=== PATIENT | female | born 1970 | race Caucasian/White ===

== ENCOUNTER 2017-01-16 21:41 | Emergency (ER) | payer OTHER ==
[~2017-01-16] VITALS: Ht 165.1 cm; Wt 104.7 kg
[2017-01-16 22:56] VITALS: BP 152/89
== END 2017-01-16 22:57 | disposition left against medical advice (07) ==
LOC: EME 21:41
DX: R07.9 Chest pain, unspecified (principal); M25.511 Pain in right shoulder; M54.9 Dorsalgia, unspecified; F17.200 Nicotine dependence, unspecified, uncomplicated
CPT/HCPCS: 99281; 99283

== ENCOUNTER 2017-05-30 00:47 | Emergency (ER) | payer OTHER ==
[~2017-05-30] VITALS: Ht 165.1 cm; Wt 93.7 kg
[2017-05-30] MEDS ORDERED: PERCOCET 5/31 TABLET PO (01:53)
[2017-05-30] MEDS ORDERED: VALIUM5 MG PO (01:53)
[2017-05-30] MEDS ORDERED: MEDROL DOSEPAK4 MG PO (01:53)
[2017-05-30 02:41] VITALS: BP 118/70
[2017-05-31] MEDS ORDERED: POTASSIUM CHLO10 ME4 PO (14:49)
[2017-05-31] MEDS ORDERED: LEVOTHYROXINE75 MCG PO (14:49)
[2017-05-31] MEDS ORDERED: FUROSEMIDE40 MG PO (14:50)
[2017-05-31] MEDS ORDERED: MOTRIN800 MG PO (16:20)
== END 2017-05-30 02:43 | disposition home or self-care (01) ==
LOC: EME 00:47 → EXP 00:47
DX: M54.12 Radiculopathy, cervical region (principal); F17.200 Nicotine dependence, unspecified, uncomplicated
CPT/HCPCS: 99281; 99283; J7512

== ENCOUNTER 2017-05-31 13:09 | Emergency (ER) | payer OTHER ==
[~2017-05-31] VITALS: Ht 165.1 cm; Wt 93.6 kg
[~2017-05-31 13:09] MED LIST: MEDROL DOSEPAK4 MG PO; PERCOCET 5/31 TABLET PO; VALIUM5 MG PO
[2017-05-31 13:13] VITALS: BP 142/94
[2017-05-31] MEDS ORDERED: LEVOTHYROXINE75 MCG PO (14:49)
[2017-05-31] MEDS ORDERED: POTASSIUM CHLO10 ME4 PO (14:49)
[2017-05-31] MEDS ORDERED: FUROSEMIDE40 MG PO (14:50)
[2017-05-31] MEDS ORDERED: MOTRIN800 MG PO (16:20)
== END 2017-05-31 16:38 | disposition home or self-care (01) ==
LOC: EME 13:09
DX: M25.561 Pain in right knee (principal); F17.200 Nicotine dependence, unspecified, uncomplicated; W01.0XXA Fall on same level from slipping, tripping and stumbling without subsequent striking against object, initial encounter
CPT/HCPCS: 73564; 99281; 99284

== ENCOUNTER 2017-08-05 05:54 | Emergency (ER) | payer SELFPAY ==
[~2017-08-05] VITALS: Ht 165.1 cm; Wt 91.5 kg
[~2017-08-05 05:54] MED LIST changes: +FUROSEMIDE40 MG PO; +LEVOTHYROXINE75 MCG PO; +MOTRIN800 MG PO; +POTASSIUM CHLO10 ME4 PO
[2017-08-05 06:35] LABS: INFLUENZA A VIRAL ANTIGEN NEGATIVE; INFLUENZA B VIRAL ANTIGEN NEGATIVE
[2017-08-05] MEDS ORDERED: LORATADINE10 M2 PO (07:33)
[2017-08-05] MEDS ORDERED: TESSALON200 MG PO (07:33)
[2017-08-05] MEDS ORDERED: K-DUR10 MEQ PO (07:37)
[2017-08-05] MEDS ORDERED: SERTRALINE HCL50 MG PO (07:37)
[2017-08-05] MEDS ORDERED: GEMFIBROZIL600 MG PO (07:37)
[2017-08-05 07:49] VITALS: BP 126/82
== END 2017-08-05 07:49 | disposition home or self-care (01) ==
LOC: EME 05:54
DX: J30.9 Allergic rhinitis, unspecified (principal); E78.5 Hyperlipidemia, unspecified; F17.200 Nicotine dependence, unspecified, uncomplicated
CPT/HCPCS: 87502; 99281; 99284

== ENCOUNTER 2017-09-20 11:16 | Emergency (ER) | payer OTHER ==
[~2017-09-20] VITALS: Ht 165.1 cm; Wt 96.0 kg
[~2017-09-20 11:16] MED LIST changes: +GEMFIBROZIL600 MG PO; +K-DUR10 MEQ PO; +LORATADINE10 M2 PO; +SERTRALINE HCL50 MG PO; +TESSALON200 MG PO
[2017-09-20] MEDS ORDERED: PREDNISONE5 M1 PO (13:42)
[2017-09-20] MEDS ORDERED: NORCO 5/3251 TABLET PO (13:42)
[2017-09-20] MEDS ORDERED: MIRALAX17 GM PO (13:42)
[2017-09-20 14:12] VITALS: BP 107/78
== END 2017-09-20 14:13 | disposition home or self-care (01) ==
LOC: EME 11:16 → RME 11:16
DX: S29.012A Strain of muscle and tendon of back wall of thorax, initial encounter (principal); E78.5 Hyperlipidemia, unspecified; F17.200 Nicotine dependence, unspecified, uncomplicated
CPT/HCPCS: 99281; 99284

== ENCOUNTER 2017-12-28 08:03 | Emergency (ER) | payer OTHER ==
[~2017-12-28] VITALS: Ht 165.1 cm; Wt 96.8 kg
[~2017-12-28 08:03] MED LIST changes: +MIRALAX17 GM PO; +NORCO 5/3251 TABLET PO; +PREDNISONE5 M1 PO
[2017-12-28] MEDS ORDERED: TAMIFLU75 MG PO (10:37)
[2017-12-28 10:45] VITALS: BP 124/87
== END 2017-12-28 10:46 | disposition home or self-care (01) ==
LOC: EME 08:03
PROVIDERS: Emergency Medicine
DX: J10.1 Influenza due to other identified influenza virus with other respiratory manifestations (principal); S60.042A Contusion of left ring finger without damage to nail, initial encounter; W22.01XA Walked into wall, initial encounter; E78.5 Hyperlipidemia, unspecified; F17.200 Nicotine dependence, unspecified, uncomplicated
CPT/HCPCS: 71046; 73140; 87502; 87651 90; 99281; 99283

== ENCOUNTER 2018-07-04 09:25 | Day surgery (SDC) | payer OTHER ==
[~2018-07-04] VITALS: Ht 165.1 cm; Wt 98.0 kg
[~2018-07-04 09:25] MED LIST changes: +KLOR-CON 1010 ME1 PO; +MOBIC7.5 MG PO; +TAMIFLU75 MG PO; +WELLBUTRIN SR150 MG PO
[2018-07-04 10:04] VITALS: BP 109/72
[2018-07-04 10:07] LABS: BASOPHIL (%) 0.8 % (0-1); BASOPHIL COUNT 0.1 K/uL (0-0.1); EOSINOPHIL (%) 4.2 % (0-5); EOSINOPHIL COUNT 0.3 K/uL (0-0.3); HEMATOCRIT 39.5 % (36.0-46.0); HEMOGLOBIN 13.1 G/DL (11.9-15.5); IMMATURE GRANULOCYTE (%) 0.7 % (0.0-0.7); LYMPHOCYTE (%) 31.1 % (15-42); LYMPHOCYTE COUNT 2.4 K/uL (1.0-2.8); MCH 30.8 PG (29.0-34.0); MCHC 33.2 G/DL (30.0-36.0); MCV 92.7 FL (83-99); MONOCYTE COUNT 0.7 K/uL (0-0.8); NEUTROPHIL (%) 54.2 % (45-76); NEUTROPHIL COUNT 4.2 K/uL (1.8-6.4); PLATELET COUNT 338 K/uL (156-360); RBC DIS.WIDTH-CV 13.6 % (11.8-14.6); RBC DIS.WIDTH-SD 46.5 % (39-53); RED BLOOD COUNT 4.26 M/uL (3.80-5.20); WHITE BLOOD COUNT 7.7 K/uL (4.1-10.2)
[2018-07-04 13:47] VITALS: BP 122/83
[2018-07-04 14:25] VITALS: BP 168/86
== END 2018-07-04 14:29 | disposition home or self-care (01) ==
LOC: SDC 09:25
PROVIDERS: Obstetrics & Gynecology
PROC: 0UBC7ZX Excision of Cervix, Via Natural or Artificial Opening, Diagnostic (ICD-10-PCS; principal; 2018-07-04)
DX: N87.1 Moderate cervical dysplasia (principal); N93.9 Abnormal uterine and vaginal bleeding, unspecified; J44.9 Chronic obstructive pulmonary disease, unspecified; E03.9 Hypothyroidism, unspecified; E78.5 Hyperlipidemia, unspecified; F17.200 Nicotine dependence, unspecified, uncomplicated
CPT/HCPCS: 81025; 85025; 86850; 86900; 86901; 88307; J0131; J1100; J2250; J2405; J3010